=== PATIENT | female | born 1945 | race Caucasian/White ===

== ENCOUNTER 2023-07-17 12:55 | Outpatient (CLI) | payer MEDICARE | END 2023-07-17 12:56 | disposition home or self-care (01) | LOC: SCSMRI 12:55 | PROVIDERS: ATTEND Anesthesiology Pain Medicine | DX: M47.26 Other spondylosis with radiculopathy, lumbar region (principal); M51.16 Intervertebral disc disorders with radiculopathy, lumbar region; M48.061 Spinal stenosis, lumbar region without neurogenic claudication; M48.07 Spinal stenosis, lumbosacral region; M43.8X6 Other specified deforming dorsopathies, lumbar region | CPT/HCPCS: 72148 ==

== ENCOUNTER 2024-06-10 11:52 | Outpatient (CLI) | payer MEDICARE | END 2024-06-10 11:53 | disposition home or self-care (01) | LOC: BICULT 11:52 | PROVIDERS: ATTEND Nurse Practitioner Family | DX: N30.01 Acute cystitis with hematuria (principal); R10.9 Unspecified abdominal pain; N28.1 Cyst of kidney, acquired | CPT/HCPCS: 76770 ==